=== PATIENT | female | born 1985 | race African-American/Black ===

== ENCOUNTER → 2023-09-14 | Emergency (ER) | payer OTHER ==
[~2023-09-14] VITALS: Ht 172.7 cm; Wt 74.8 kg
[~2023-09-14] MED LIST: NYST5ORA PO
[2023-09-14 21:31] VITALS: BP 132/68; TEMP 97.9; O2SAT 98
== END | disposition home or self-care (01) ==
LOC: ER 21:25
DX: B37.0 Candidal stomatitis (principal)

== ENCOUNTER 2024-08-23 11:57 | Emergency (ER) | payer OTHER ==
[~2024-08-23] VITALS: Ht 165.1 cm; Wt 63.5 kg
[2024-08-23] MEDS ORDERED: ERYT3.5O9 EACHEYE (12:47)
[2024-08-23] MEDS ORDERED: ERYTHROMYCIN BASE OPHTH 3.5 GM TUBE ONE (12:53)
[2024-08-23] MEDS: ERYTHROMYCIN BASE OPHTH 3.5 GM TUBE OP ONE (13:00)
[2024-08-23 13:10] VITALS: BP 123/94; TEMP 98.1; O2SAT 18
== END 2024-08-23 13:12 | disposition home or self-care (01) ==
LOC: ER 12:05
DX: H46.8 Other optic neuritis (principal); H16.133 Photokeratitis, bilateral; Z79.899 Other long term (current) drug therapy